=== PATIENT | male | born 1955 | race Two or more races ===

== ENCOUNTER 2020-07-10 12:37 | Emergency (ER) | payer MEDICARE, MEDICAID ==
[~2020-07-10] VITALS: Ht 180.3 cm; Wt 70.3 kg
[2020-07-10 14:56] VITALS: BP 126/85
== END 2020-07-10 15:34 | disposition home or self-care (01) ==
LOC: ER 12:37
DX: R59.1 Generalized enlarged lymph nodes (principal); J45.909 Unspecified asthma, uncomplicated

== ENCOUNTER 2020-08-02 09:03 | Emergency (ER) | payer MEDICARE, MEDICAID ==
[~2020-08-02] VITALS: Ht 180.3 cm; Wt 63.5 kg
[2020-08-02 09:11] VITALS: BP 145/87
== END 2020-08-02 09:39 | disposition home or self-care (01) ==
LOC: ER 09:03
DX: S01.81XD Laceration without foreign body of other part of head, subsequent encounter (principal); J45.909 Unspecified asthma, uncomplicated; X58.XXXD Exposure to other specified factors, subsequent encounter

== ENCOUNTER 2021-02-22 09:18 | Emergency (ER) | payer MEDICARE, MEDICAID ==
[~2021-02-22] VITALS: Ht 180.3 cm; Wt 68.0 kg
[2021-02-22 09:43] VITALS: BP 127/79
[2021-02-22] MEDS ORDERED: cefTRIAXone SOD 1,000 MG VL IM ONE (10:00)
== END 2021-02-22 10:20 | disposition home or self-care (01) ==
LOC: ER 09:18
DX: L02.02 Furuncle of face (principal); L08.9 Local infection of the skin and subcutaneous tissue, unspecified; J45.909 Unspecified asthma, uncomplicated
CPT/HCPCS: 96372; 99283; J0696

== ENCOUNTER 2021-07-05 09:38 | Emergency (ER) | payer OTHER, MEDICAID ==
[~2021-07-05] VITALS: Ht 180.3 cm; Wt 70.3 kg
[2021-07-05 10:15] VITALS: BP 136/85
== END 2021-07-05 11:40 | disposition home or self-care (01) ==
LOC: ER 09:38
DX: S93.602A Unspecified sprain of left foot, initial encounter (principal); J45.909 Unspecified asthma, uncomplicated; M19.072 Primary osteoarthritis, left ankle and foot; X50.1XXA Overexertion from prolonged static or awkward postures, initial encounter; Y93.89 Activity, other specified; Y92.89 Other specified places as the place of occurrence of the external cause; Y99.8 Other external cause status
CPT/HCPCS: 73630

== ENCOUNTER 2021-07-22 05:14 | Emergency (ER) | payer OTHER, MEDICAID ==
[~2021-07-22] VITALS: Ht 180.3 cm; Wt 70.3 kg
[2021-07-22 07:22] VITALS: BP 121/85
[2021-07-22] MEDS ORDERED: KETOROLAC TROMETH 60MG/2ML VIAL IM ONE (07:30)
== END 2021-07-22 08:01 | disposition home or self-care (01) ==
LOC: ER 05:14
DX: S63.501A Unspecified sprain of right wrist, initial encounter (principal); J45.909 Unspecified asthma, uncomplicated; X58.XXXA Exposure to other specified factors, initial encounter; Y93.89 Activity, other specified; Y92.89 Other specified places as the place of occurrence of the external cause; Y99.8 Other external cause status
CPT/HCPCS: 29125; 73100; 96372; 99283; J1885

== ENCOUNTER 2022-06-16 06:55 | Emergency (ER) | payer OTHER, MEDICAID ==
[~2022-06-16] VITALS: Ht 180.3 cm; Wt 70.0 kg
[2022-06-16 10:49] VITALS: BP 118/77
== END 2022-06-16 11:11 | disposition home or self-care (01) ==
LOC: ER 06:55
DX: R22.1 Localized swelling, mass and lump, neck (principal); J45.909 Unspecified asthma, uncomplicated
CPT/HCPCS: 70360; 71045

== ENCOUNTER 2022-08-16 13:35 | Emergency (ER) | payer OTHER, MEDICAID ==
[~2022-08-16] VITALS: Ht 180.3 cm; Wt 73.0 kg
[2022-08-16 16:54] VITALS: BP 107/70
== END 2022-08-16 17:49 | disposition home or self-care (01) ==
LOC: ER 13:37
DX: R22.1 Localized swelling, mass and lump, neck (principal); J45.909 Unspecified asthma, uncomplicated
CPT/HCPCS: 70360

== ENCOUNTER 2022-10-31 11:55 | Emergency (ER) | payer OTHER, MEDICAID ==
[~2022-10-31] VITALS: Ht 180.3 cm; Wt 70.4 kg
[2022-10-31 17:31] VITALS: BP 109/74
== END 2022-10-31 17:32 | disposition home or self-care (01) ==
LOC: ER 11:55
DX: R22.1 Localized swelling, mass and lump, neck (principal); J45.909 Unspecified asthma, uncomplicated

== ENCOUNTER 2022-11-02 02:29 | Emergency (ER) | payer OTHER, MEDICAID ==
[~2022-11-02] VITALS: Ht 180.3 cm; Wt 69.0 kg
[2022-11-02 02:29] VITALS: BP 115/80
== END 2022-11-02 07:55 | disposition left against medical advice (07) ==
LOC: ER 02:29
DX: Z48.00 Encounter for change or removal of nonsurgical wound dressing (principal); Z53.21 Procedure and treatment not carried out due to patient leaving prior to being seen by health care provider

== ENCOUNTER 2022-11-02 16:47 | Emergency (ER) | payer OTHER, MEDICAID ==
[~2022-11-02] VITALS: Ht 180.3 cm; Wt 70.0 kg
[2022-11-02 19:07] VITALS: BP 96/57
== END 2022-11-02 19:11 | disposition home or self-care (01) ==
LOC: ER 16:47
DX: R22.1 Localized swelling, mass and lump, neck (principal)
CPT/HCPCS: 70490

== ENCOUNTER 2022-11-05 09:03 | Emergency (ER) | payer OTHER, MEDICAID ==
[~2022-11-05] VITALS: Ht 180.3 cm; Wt 70.5 kg
[2022-11-05] MEDS ORDERED: NEOMYCIN-BACITRACIN-POLYM UNITDOSE PKG TOP OINT TOP ONE (09:45)
[2022-11-05 11:30] VITALS: BP 113/69
== END 2022-11-05 14:08 | disposition home or self-care (01) ==
LOC: ER 09:03
DX: C76.0 Malignant neoplasm of head, face and neck (principal); L76.21 Postprocedural hemorrhage of skin and subcutaneous tissue following a dermatologic procedure; J45.909 Unspecified asthma, uncomplicated